=== PATIENT | male | born 1965 | race Caucasian/White ===

== ENCOUNTER 2016-05-11 11:09 | Inpatient (IN) | payer OTHER ==
[2016-05-11] VITALS (12 sets, daily range): BP systolic 110–148; BP diastolic 66–93; PULSE 76–91; RESP 10–18; O2SAT 94–100
[~2016-05-11] VITALS: Ht 193 cm; Wt 90.7 kg
[2016-05-11] MEDS: Lactated Ringer's 1,000 ML IV SCH ×3 (05:00→13:28)
[~2016-05-11 11:09] MED LIST: Bupivacaine Liposome 1.3% 20 mL Inj INFILTRATE ONE; CeFAZolin 2 Gm/50 mL D5W IV Premix IV ONE; DICL100G26 TOPICAL; LISI30TA5 PO; OMEP40CA36 PO; ROPI1TAB3 PO; quinine
[2016-05-11] MEDS ORDERED: CeFAZolin 2 Gm/50 mL D5W Duplex Bag IV ONE (11:51)
[2016-05-11] MEDS ORDERED: Phenylephrine 10,000 mCg/mL Inj IVPUSH PRN (12:40)
[2016-05-11] MEDS ORDERED: Lactated Ringer's 500 ML IV PRN (12:40)
[2016-05-11] MEDS ORDERED: Labetalol 5 mg/mL 4 mL Inj IV PRN (12:40)
[2016-05-11] MEDS ORDERED: EPHEDrine Sulfate 50 mg/mL Inj IVPUSH PRN (12:40)
[2016-05-11] MEDS ORDERED: Lactated Ringer's 1,000 ML IV SCH ×2 (12:40→19:45)
[2016-05-11] MEDS ORDERED: Ondansetron 2 mg/mL 2 mL Inj IVPUSH PRN (12:40)
[2016-05-11] MEDS ORDERED: Dexamethasone 4 mg/mL Inj IVPUSH PRN (12:40)
--- NOTE | 2016-05-11 12:59 | PCM.HPANE ---
Patient Data Surgeon Admitting Provider: Attending Provider:Tr Canales MD Primary Care Physician:Octavia Valle MD Other Provider:[facility] Reason for Visit Status Post Knee, Heterotopic Lesion Ht/WT & BMI Height (Feet): 6 Height (Inches): 4 Weight (Kilograms): 90.7 Body Mass Index 24.00 Allergies Coded Allergies: metoclopramide (Verified Allergy, Unknown, 05/03/15) Past Anesthesia History Anesthesia History: Denies:: Anesthesia Reactions Diabetes History Hx Diabetes?: No MRSA MRSA: No Medications Hypertension Medication: No Home Meds Incl Beta Desmond: No Reported Medications Ropinirole 1 Mg Tablet1 Mg PO TID PRN For Spasm Ref 0 05/08/16 [quinine] No Conflict CheckUnknown Dose BID 05/08/16 Omeprazole 40 Mg Capsule.dr40 Mg PO DAILY Ref 0 05/08/16 Lisinopril 30 Mg Soggkt16 Mg PO DAILY 30 Days Ref 0 05/08/16 Diclofenac Gel 100 Gm Tube1 Applic TOPICAL QID PRN For Pain #1 TUBE 05/08/16 Discontinued Reported Medications Omeprazole (Prilosec)40 Mg Capsule.dr40 Mg PO BID 30 Days Ref 0 05/03/15 Lisinopril 10 Mg Ptpkcu57 Mg PO DAILY 30 Days Ref 0 04/29/15 History History of ENT Problems?: Yes HEENT History: Positive for:: Sinus Problem (sinus surgery) Denies:: Cataracts Dysphagia Glaucoma Hearing Problem Denture Type: Full- Upper Full- Lower Other HEENT Pertinent History: 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 Hx of IgG tx once monthly- last infusion 05/02/16 Hx of Respiratory Problem?: No Respiratory History: Denies:: Asthma COPD Emphysema Oxygen Administration Pneumonia Tuberculosis Use of C-PAP Machine Hx Neurologic Problems?: No Neurological History: Denies:: CVA Dementia Dizziness Headaches Multiple Sclerosis Parkinson's Disease Seizures Hx of GI Problems?: Yes Gastrointestinal History: Positive for:: Hepatitis Denies:: Diverticulitis Gall Bladder Disease Gastrointestinal Bleeding Heartburn Hiatal Hernia Rectal Bleeding Hx of Problems?: No Genitourinary History: Denies:: Kidney Stones Urinary Tract Infection Male Hx: Denies:: Prostate Problems Skin History: Denies:: History Skin Disorders? Pressure Ulcers Hx Musculoskeletal Problems?: Yes Musculoskeletal History: Positive for:: Joint Replacement (left TKA) Musculoskeletal Trauma (heterotopic ossification left knee current admission problem) Hx of Psycho/Social Problems?: No Hx Surgeries?: Yes (right eye surgery due to corneal ulceration, sinus surgery, left tka, umb he) Hx Any Other Health Problems?: Yes Other History: Positive for:: Hospitalization Denies:: Cancer (aplastic anemia) Thyroid Disease History Blood Transfusions: Positive for:: Accept Blood Products? Blood Transfusions Hx Diabetes: No Hx Alcohol Use: Yes (occassional use)Hx Substance Use: No Smoking Status: Unknown if Ever Smoker Have You Smoked inLast 12 mo: No Stop/Bang Treated for Sleep Apnea?: No Do You Have a CPAP Machine?: No S-Snoring: Do You Snore Loudly: No T-Tired: feel tired, fatigued: No O-Obsered: Observed not breath: No P-Blood Pressure: treated: Yes B- Body Mass Index > 35 kg/m2: No A- Age over 50: Yes N- Neck Large Circumference: No G- Gender Male: Yes PALLAVI Total Score: 3 PALLAVI Risk Assessment: Low Risk, <3 Yes Risk Assessment Category Category 1A: Patient has history of documented sleep apnea, and HAS NOT received any narcotic, sedative or anesthesia administration during this stay. Category 1B: Patient has history of documented sleep apnea, and HAS received any narcotic , sedative or anesthesia administration during this stay Category 2: Patient has SUSPECTED Obstructive Sleep Apnea, and HAS received any narcotic , sedative or anesthesia administration during this stay. Category 3: Patient has SUSPECTED Obstructive Sleep Apnea and HAS NOT received narcotic, sedative or anesthesia administration during this stay. Category 4: Outpatient in Procedural Areas with known sleep apnea or who screen positive for High Risk via the STOP/BANG questionnaire. Exam Exam Vital Signs Vital Signs Date Time Temp Pulse Resp B/P Pulse Ox O2 Delivery O2 Flow Rate FiO2 05/11/16 11:24 36.7 79 16 142/87 97 Room Air General Appearance: Oriented X3 HEENT/AIRWAY: MP 2 Lungs: Normal Air Movement Heart: Regular Rate/Rhythm Meds/Labs/Diagnostics Admission Meds Current Medications Vancomycin HCl 1500 mg/Dextrose/ Water 500 ml @ 333.333 mls/hr PREOP ONCE IV Last administered on 05/11/16at 12:15; Start 05/11/16 at 06:00; Stop 05/11/16 at 07:29; Status DC Lactated Ringer's (Lr) 1,000 ml @ 120 mls/hr Q8H20M IV Last administered on at 11:23; Start 05/11/16 at 05:00; Stop 05/11/16 at 13:19 Plan Impression Patient chart reviewed, patient interviewed and anesthestic plan with risks, benefits, and alternatives discussed, and informed consent obtained. NPO Status: 05/10 ASA Physical Status: ASA2 Mod Systemic Disease Anesthetic Plan: GA, Regional Block Bene/Risks/Altern/Consents: Yes HP Complete Prior to Induction: Yes Raímrez Fonseca MD May 11, 2016 12:59
[2016-05-11] MEDS ORDERED: Gentamicin 40 mg/mL 2 mL Inj IRRIGATION ONE (13:57)
--- NOTE | 2016-05-11 15:55 | OP ---
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 PROCEDURE: 1. Revision of total knee polyethylene reducing 15 to 10 mm poly. 2. Synovectomy removing extensive synovial tissue proliferation. 3. Removal of heterotopic ossification. 4. Two plane C-arm visualization of the implant and heterotopic calcification removal of process. SURGEON: Tr Canales MD. DOOR TO DOOR SALESPERSON: Job Hwang PA-C. Production Support Developer required due to the major complexity of the operation. COMPLICATIONS: None. INDICATIONS: This man had a total knee replacement done in 2010, performed by Dr. Stone Cheng. He did well initially but has experienced progressive increasing pain and a substantial loss of range of motion, having a 20-degree flexion contracture preoperatively with 90 degrees of flexion creating an abnormal gait, pain and significant disability. He elects to proceed with this operation. He knows and understands the potential for risks and complications including return of arthrofibrosis and heterotopic ossification. He is being treated perioperatively with radiation management to reduce this incidence. DESCRIPTION OF PROCEDURE: The patient was prepped and draped in the usual sterile fashion. Preoperative measurements were made, and a 20-degree flexion contracture was encountered with approximately 95 degrees of flexion preoperatively. The previous open incision was opened. Longitudinally, dissection carried down. Deep fascia opened in line with previous incision removing the presence of thick permanent suture from the suture line. The knee was flexed up. A very small amount of effusion was encountered but it was sent for culture. The synovium was prolific with a calcified, frondular, prolific tissue through much of the knee. This was carefully excised, and a specimen was sent to Pathology for an analysis to see if this could help in reducing the potential recurrence of this problem. The polyethylene was removed which allowed exposure to the posterior aspect of the knee where further calcified, prolific synovium was encountered, as well as heterotopic ossification. Heterotopic ossification was removed from this area and the suprapatellar pouch. After extensive debridement of the knee, the poly was trialed with a 12.5 and a 10 mm poly. Full extension was achieved using a 10 mm poly. A 5-degree flexion contracture was noted with a 12.5 mm poly. There was mild mid flexion instability with the 10 mm poly but with aggressive manipulation the posterior stabilized knee could not be dislocated. So, due to the probability that his knee would develop some further fibrosis, a 10 mm poly was chosen. A C-arm was brought into the room and the knee was examined under C-arm control, documenting both full extension and the removal of the preoperative present heterotopic calcification. Wounds were irrigated thoroughly with sterile irrigant. They were also lavaged with a dilute Betadine solution. A deep Hemovac drain was left. The tourniquet was let down. Hemostasis was achieved. The knee was closed with #2 Quill deep, followed by 2-0 Vicryl, 3-0, and a 4-0 intracuticular stitch was utilized for the final closure. Postoperative physical therapy, emphasizing maintaining full extension as the primary emphasis.
--- NOTE | 2016-05-11 16:10 | PCM.ANEP1 ---
Post Anesthesia Phase 1 PACU Phase 1 Assessment Vital Signs Vital Signs Date Time Temp Pulse Resp B/P Pulse Ox O2 Delivery O2 Flow Rate FiO2 05/11/16 16:00 36.9 90 18 123/76 98 Room Air 05/11/16 15:50 91 13 135/85 98 Room Air 05/11/16 15:45 87 13 135/85 97 Room Air 05/11/16 15:40 84 11 110/93 100 Room Air 05/11/16 15:35 37.4 86 10 148/88 100 Simple Mask 8 05/11/16 11:24 36.7 79 16 142/87 97 Room Air Anesthetic Administered: GA Level of Alertness: Awake, talking Pain: No Nausea or Vomiting: No Oxygen Delivery: Room Air Lungs: Normal Air Movement Ramírez Fonseca MD May 11, 2016 16:10
--- NOTE | 2016-05-11 16:11 | PCM.ANEP2 ---
Post Anesthesia Evaluation ASA/CMS Post Anesthesia VS in Patient's Normal Range?: Yes Resp Stable; Airway Patent?: Yes CV Function & Hydration Stable: Yes Mental Status Recovered?: Yes Pain control Satisfactory?: Yes N/V Control Satisfactory?: Yes Ramírez Fonseca MD May 11, 2016 16:10
[2016-05-11] MEDS: HYDROmorphone 1 mg/mL Inj IVPUSH PRN ×2 (16:22→16:30)
[2016-05-11] MEDS ORDERED: Ketorolac 15 mg/mL Inj ONE (16:32)
--- NOTE | 2016-05-11 16:34 | DRSVH ---
PROCEDURE: X-RAY LEFT KNEE, ONE OR TWO VIEWS ([id number]) INDICATIONS: STATUS POST KNEE ARTHROSCOPY TECHNIQUE: 2 view(s) of the knee acquired. COMPARISON: [facility], , KNEE 1 OR 2VW (LT), 02/18/2007, 15:02. FINDINGS: Bones: Patient is status post knee joint arthroplasty. Hardware components are in expected position s. Visualized bony structures are intact. Soft tissues: Overlying postoperative changes are noted. IMPRESSION: Expected appearance status post left TKA. Dictated by: Shilo Walker [facility] Interpreted: Romi Arias MD on 05/11/2016 at 16:27 Transcribed by: MIYA on 05/11/2016 at 16:27 Approved by: Romi Arias MD, PhD on 05/11/2016 at 16:56
[2016-05-11] MEDS: fentaNYL-PF 50 mCg/mL 2 mL Inj IVPUSH PRN ×3 (16:40→17:25)
--- NOTE | 2016-05-11 18:15 | NUR ---
received to room 1025 from PACU alert, fairly comfortable, orthos signs OK, good appetite/eating general diet already, VSS
[2016-05-11] MEDS ORDERED: oxyCODONE-Acetamin 5-325 mg Tablet PO ONE (19:04)
[2016-05-11] MEDS: oxyCODONE-Acetamin 5-325 mg Tablet PO PRN (19:08)
[2016-05-11] MEDS ORDERED: LORazepam 0.5 mg Tablet PO PRN (19:45)
[2016-05-11] MEDS ORDERED: Vancomycin 1,000 mg/200 mL D5W IV ONE (19:45)
[2016-05-11] MEDS ORDERED: Ondansetron 2 mg/mL 2 mL Inj IV PRN (19:45)
[2016-05-11] MEDS ORDERED: Ondansetron 8 mg ODT Tablet PO PRN (19:45)
[2016-05-11] MEDS ORDERED: Alum-Mag Hydrox-Simeth 30 mL Suspension PO PRN (19:45)
[2016-05-11] MEDS ORDERED: HYDROcodone-APAP 5-325 mg Tablet PO PRN (19:45)
[2016-05-11] MEDS ORDERED: diphenhydrAMINE 25 mg Capsule PO PRN (19:45)
[2016-05-11] MEDS ORDERED: Magnesium Hydroxide 10 mL Oral Concentration PO PRN (19:55)
[2016-05-11] MEDS ORDERED: MetoCLOpramide 5 mg/mL 2 mL Inj IV PRN (20:15)
[2016-05-11] MEDS: Ketorolac 15 mg/mL Inj IV SCH (21:06)
[2016-05-11] MEDS ORDERED: INDOMETHACIN 75 MG PO SCH (21:30)
[2016-05-11] MEDS ORDERED: fentaNYL-PF 50 mCg/mL 2 mL Inj ONE (22:19)
[2016-05-11] MEDS: CeFAZolin 2 Gm/50 mL D5W Premix IV SCH (22:52)
[2016-05-11] MEDS ORDERED: 0.9% Sodium Chloride 250 ML ONE (22:55)
[2016-05-12] MEDS: oxyCODONE-Acetamin 5-325 mg Tablet PO PRN ×3 (00:08→08:36)
[2016-05-12] MEDS: hydrOXYzine Pamoate 25 mg Capsule PO PRN ×4 (00:08→16:30)
[2016-05-12] MEDS: Sodium Chloride LOK Flush 10 mL Syringe IV SCH ×4 (01:03→23:30)
[2016-05-12] MEDS ORDERED: VANCOMYCIN IV ONE (01:30)
[2016-05-12] MEDS: Ketorolac 15 mg/mL Inj IV SCH ×2 (03:46→08:33)
[2016-05-12 05:56] VITALS: BP 115/70; PULSE 70; RESP 16; O2SAT 97
--- NOTE | 2016-05-12 05:56 | NUR ---
Pain Patient reports pain 6/10 consistantly, despite interventions of PO percocet he specifically requests IV morphine. 200 ml sanguinous fluid out of hemovac. Patient running LR at 60 ml/hr, IV patent. Will continue to monitor
[2016-05-12] MEDS: CeFAZolin 2 Gm/50 mL D5W Premix IV SCH (06:42)
[2016-05-12 08:37] LABS: Mean Corpuscular Hemoglobin 30.4 pg (27.0-35.0); Mean Corpuscular Volume 91.1 fL (81-100); Platelet Count 199 bil/L (150-400)
[2016-05-12 08:38] LABS: BASOPHILS % (AUTO) 0.1 % (0-3); EOSINOPHILS % (AUTO) 0 % (0-5); MONOCYTES % (AUTO) 7.4 % (4-12); NEUTROPHILS % (AUTO) 83.1 % (40-74)
--- NOTE | 2016-05-12 08:43 | PCM.PNORTH ---
Subjective Date of Service: May 12, 2016 Visit Information: Reason for Visit Status Post Knee, Heterotopic Lesion Surgery/Surgery Date Post-Op Day # Date of Admission: May 11, 2016 at 18:41 Hospital Day # Subjective Found patient awake and alert and sitting up in bed and well positioned. No complaints of pain at this time. Discussed performance with physical therapy and its relationship to discharging to home as soon as possible. Encouraged patient to maintain full knee extension and work on this with therapy as well as when he is in bed. Discussed the fact that he did have full extension at the knee intraoperatively and that he should work hard to maintain this immediately postop. Postop General: No Complaints, No Shortness of Breath, No Chest Pain, Good Appetite Pain Management: PO, IV Push Objective Exam Objective Orientation: Alert and oriented 3 and pleasant. Dressing: Interoperative dressing is clean dry and intact Wound: Wound is not observed today Compartments: Calf and thigh are soft and nontender Mobility/sensation: Mobility and sensation are intact at the left lower extremity distally Galeano: Absent Drain: Hemovac drain is in place and working. Gait: No gait with physical therapy yet as of this time. Vital Signs and I/O Vital Sign - Last Date Time Temp Pulse Resp B/P Pulse Ox O2 Delivery O2 Flow Rate FiO2 05/12/16 05:56 36.6 70 16 115/70 97 Room Air 05/11/16 15:35 8 Intake and Output 05/11/16 05/11/16 05/12/16 Cumulative From/Thru 15:00 23:00 07:00 05/08/16 17:06 - 05/12/16 06:53 Intake Total 1060 ml 600 ml 800 ml 2460 ml Output Total 50 ml 1300 ml 1350 ml Balance 1060 ml 550 ml -500 ml 1110 ml Intake Oral 800 ml 800 ml IV Total 1060 ml 600 ml 1660 ml Output Urine Total 1100 ml 1100 ml Drainage Total 200 ml 200 ml Estimated Blood Loss 50 ml 50 ml Lab & Micro Results Laboratory Tests Test 05/12/16 07:29 Microbiology 05/11/16 Gram Stain - Final, Resulted 05/11/16 Culture & Sensitivity, Resulted Pending 05/11/16 Anaerobic Culture, Resulted Pending General Appearance: Alert, Oriented X3, Cooperative, No Acute Distress Extremities: No Compartment Syndrom Noted, Thigh & Calf Soft/Nontender Postop Sensory Motor: Distal Motor Intact, Movement in Toes, Distal Sensation Intact SURGICAL WOUND : Drain Location Body Site: Knee Wound Drainage Type: Hemovac Activity: Activity per PT, Ambulate with PT (therapy please encourage left knee full extension in bed and during gait.) Catheters: None Assessment & Plan Plan Postop day # 1 from left total knee arthroplasty revision with poly-exchange, synovectomy and excision of heterotopic ossifications performed on 05/11/[address] Tr Canales. Weight bearing status: Weightbearing as tolerated on the left lower extremity Mobility aid: Front-wheeled walker Immobilization: None Precautions: Maintain full knee extension when in bed and work on full knee extension during gait and when supine Physical therapy: Continue formal physical therapy for mobility, gait and safety. Please encourage patient to keep knee in full extension and work on this when he is in bed as well as during gait. Pain control: Continue by mouth pain medications as needed for pain control. Please discontinue IV pain medication as soon as possible. DVT prophylaxis: ASA 325 mg EC by mouth daily 6 weeks postop for DVT prophylaxis. Wound care: Keep wound clean and dry and covered until seen in office in 2 weeks Infectious DZ: None Galeano: Absent Dressing: Interoperative dressing is clean dry and intact and will be changed tomorrow on postop day #2 Drain: Hemovac drain is in an working and should be discontinued today on postop day #1 Nursing: Please work on discontinuing IV pain medication and moving patient to by mouth pain medication only 2-week follow-up: Follow-up in 2 weeks at [facility] orthopedic clinic one prearranged appointment with mid-level provider for wound check and suture removal 6-week follow-up: Follow-up in 6 weeks at [facility] orthopedic clinic on prearranged appointment with Dr. Tr Canales with left two-view knee x- rays on arrival. Discharge plan: Anticipate discharge to home with family has caregivers on postop day 2 or 3. VTE Prophylaxis: SCDs (SCD at right lower extremity), Other (ASA 325 EC by mouth daily 6 weeks postop for DVT prophylaxis.) Rajan Tan PA-C May 12, 2016 08:43
[2016-05-12] MEDS ORDERED: Lisinopril 40 Tablet PO SCH (08:57)
[2016-05-12 10:36] VITALS: BP 135/85; PULSE 83; RESP 18; O2SAT 100
[2016-05-12] MEDS: Pantoprazole 40 mg ER24 Tablet PO SCH (10:42)
[2016-05-12] MEDS ORDERED: Bupivacaine-MPF 0.25%/EPI 30 mL Inj ONE (11:31)
[2016-05-12] MEDS ORDERED: Propofol 10,000 mCg/mL 20 mL Inj ONE (11:31)
[2016-05-12] MEDS ORDERED: Dexamethasone 4 mg/mL Inj ONE (11:31)
[2016-05-12] MEDS ORDERED: Ondansetron 2 mg/mL 2 mL Inj ONE (11:31)
--- NOTE | 2016-05-12 12:19 | NUR ---
Pain Managed at -10/20 with 10 mg Percocet prn and 25mg Vistaril. Changed to plain oxycodone 10mg to avoid exceeding acetaminophen limit. Pt able to walk in halls with PT. Continue to monitor.
[2016-05-12 15:19] VITALS: BP 139/81; PULSE 88; RESP 20; O2SAT 97
[2016-05-12 21:13] VITALS: BP 134/85; PULSE 80; RESP 18; O2SAT 95
[2016-05-13] MEDS: hydrOXYzine Pamoate 25 mg Capsule PO PRN ×4 (01:11→14:31)
[2016-05-13 04:56] VITALS: BP 141/98; PULSE 87; RESP 18; O2SAT 100
--- NOTE | 2016-05-13 05:00 | NUR ---
Increased pain level tearful, rating knee pain a 10. IV MS 2mg given but ineffective. Repeated dose in 1hr without stated effect. Also received Visteril and Roxycodone. BLU Tan notified and to see patient on morning rounds.
[2016-05-13] MEDS: Pantoprazole 40 mg ER24 Tablet PO SCH (07:03)
[2016-05-13] MEDS: Sodium Chloride LOK Flush 10 mL Syringe IV SCH ×2 (07:21→16:30)
[2016-05-13] MEDS ORDERED: INDOMETHACIN 75 MG PO SCH (08:30)
--- NOTE | 2016-05-13 08:56 | PCM.PNORTH ---
Subjective Date of Service: May 13, 2016 Visit Information: Reason for Visit Status Post Knee, Heterotopic Lesion Surgery/Surgery Date Post-Op Day # Date of Admission: May 11, 2016 at 18:41 Hospital Day # Subjective Foundation awake and alert and sitting on the edge of bed. Complains of pain at this time beginning yesterday when his block wore intraoperative medications wore off. Patient indicates he is on chronic morphine use secondary to gammaglobulin infusions secondary to a bone marrow transplant for aplastic anemia. He did well with formal physical therapy yesterday but feels he could not go home today secondary to pain issues. I have discussed with him at some length today A change in his medication regime and we will implement that today an effort to get him ready for discharge either this afternoon or tomorrow. Postop General: No Shortness of Breath, No Chest Pain, Good Appetite Pain Management: PO, IV Push Objective Exam Objective Orientation: Alert and oriented 3 and pleasant. Dressing: Interoperative dressing is clean dry and intact. Interoperative dressing is changed to ABD and fishnet dressing this morning. Wound: Wound is observed this morning and is clean, dry and intact with no focal swelling and no erythema. Compartments: Calf and thigh are soft and nontender. Mobility/sensation: Toe wiggle and sensation are intact that left lower extremity. Galeano: Absent Drain: Absent Gait: Gait 175 feet with physical therapy on 05/12/2016. Physical therapy recommendation is for discharge to home with outpatient physical therapy using bilateral axillary crutches at this time. Vital Signs and I/O Vital Sign - Last Date Time Temp Pulse Resp B/P Pulse Ox O2 Delivery O2 Flow Rate FiO2 05/13/16 04:56 37.1 87 18 141/98 100 Room Air 05/11/16 15:35 8 Intake and Output 05/12/16 05/12/16 05/13/16 Cumulative From/Thru 15:00 23:00 07:00 05/08/16 17:06 - 05/13/16 06:14 Intake Total 800 ml 1600 ml 1200 ml 6060 ml Output Total 350 ml 1700 ml Balance 800 ml 1250 ml 1200 ml 4360 ml Intake Oral 1600 ml 1200 ml 3600 ml IV Total 800 ml 2460 ml Output Urine Total 300 ml 1400 ml Drainage Total 50 ml 250 ml Estimated Blood Loss 50 ml # Voids 3 4 7 Lab & Micro Results Microbiology 05/11/16 Gram Stain - Final, Resulted 05/11/16 Culture & Sensitivity - Preliminary, Resulted No growth to date 05/11/16 Anaerobic Culture, Resulted Pending Result Diagram: 05/12/16 0729 General Appearance: Alert, Oriented X3, Cooperative, No Acute Distress Extremities: No Compartment Syndrom Noted, Thigh & Calf Soft/Nontender Postop Sensory Motor: Distal Motor Intact, Movement in Toes, Distal Sensation Intact SURGICAL WOUND : Drain Location Body Site: Knee Wound Drainage Type: Hemovac Activity: Activity per PT, Ambulate with PT (therapy please encourage left knee full extension in bed and during gait.) Catheters: None Assessment & Plan Impression Patient has performed well with formal physical therapy on postop day #1 but has had a medication change which I believe has increased his pain level as well as expected postoperative pain increased after interoperative medications have worn off. Patient is otherwise doing well and will likely discharged today or tomorrow on postop day 3. Problems: Plan Postop day # 2 from left total knee arthroplasty revision with poly-exchange, synovectomy and excision of heterotopic ossifications performed on 05/11/[address] Tr Canales. Weight bearing status: Weightbearing as tolerated on the left lower extremity Mobility aid: Front-wheeled walker Immobilization: None Precautions: Maintain full knee extension when in bed and work on full knee extension during gait and when supine Physical therapy: Continue formal physical therapy for mobility, gait and safety. Please encourage patient to keep knee in full extension and work on this when he is in bed as well as during gait. Pain control: Continue by mouth pain medications as needed for pain control. Discontinue IV pain medications and do not restart these unless he check with orthopedics first. DVT prophylaxis: ASA 325 mg EC by mouth daily 6 weeks postop for DVT prophylaxis. Wound care: Keep wound clean and dry and covered until seen in office in 2 weeks Infectious DZ: None Galeano: Absent Dressing: Interoperative dressing is clean dry and intact. Interoperative dressing is changed to Picco type dressing this morning with a median fishnet. Drain: Absent Nursing: Please do not use IV pain medication. Please use Percocet 02/12/2025 by mouth every 4H, Roxicodone 5 mg 1-2 tabs by mouth when necessary, Vistaril 50 mg by mouth every 4H and indomethacin 75 mg by mouth twice a day. 2-week follow-up: Follow-up in 2 weeks at [facility] orthopedic clinic one prearranged appointment with mid-level provider for wound check and suture removal 6-week follow-up: Follow-up in 6 weeks at [facility] orthopedic clinic on prearranged appointment with Dr. Tr Canales with left two-view knee x- rays on arrival. Discharge plan: Anticipate discharge to home with family has caregivers on postop day 2 or 3 when pain is controlled. VTE Prophylaxis: SCDs (SCD at right lower extremity), Other (ASA 325 EC by mouth daily 6 weeks postop for DVT prophylaxis.) Rajan Tan PA-C May 13, 2016 08:56
[2016-05-13] MEDS: oxyCODONE-Acetamin 10-325 mg Tablet PO PRN ×3 (08:58→17:01)
[2016-05-13] MEDS: Indomethacin 25 mg Capsule PO SCH ×2 (10:10→14:31)
[2016-05-13 10:12] VITALS: BP 157/81; PULSE 101; RESP 19; O2SAT 96
--- NOTE | 2016-05-13 14:31 | PCM.DIORTH ---
Ortho Discharge Instruction Date of Service: May 13, 2016 Dates of Hospitalization Date of Hospital Admission May 11, 2016 at 18:41 Providers Admitting Physician: Tr Canales MD Primary Care Physician: Octavia Valle MD Attending Physician: Tr Canales MD Diet Discharge Diet: No restrictions Activity Discharge Activity-General: Try not to overdue, Be up and about, Balance rest and activity, Elevate extremity, Ice incision 3-5 time/day for 20min, Activity as pain allows, Activity as energy allows, No driving while taking narcotic Left Lower Extremity: Weight Bearing as tolerated Discharge Assist Device: Front Wheeled Walker Dressing and Incisional Care Discharge Dressing Care: Keep dressing clean, dry & intact, Change soiled dressing Discharge Hygiene: May shower (patient may shower but dressing and wound should be kept clean and dry until seen in office in 2 weeks.), DO NOT soak incision under water, NO bathtub, hot tub or whirlpool Additional Instructions Discharge Instructions Plan Postop day # 2 from left total knee arthroplasty revision with poly-exchange, synovectomy and excision of heterotopic ossifications performed on 05/11/[address] Tr Canales. Weight bearing status: Weightbearing as tolerated on the left lower extremity Mobility aid: Front-wheeled walker Immobilization: None Precautions: Maintain full knee extension when in bed and work on full knee extension during gait and when supine Physical therapy: Continue formal physical therapy for mobility, gait and safety. Please encourage patient to keep knee in full extension and work on this when he is in bed as well as during gait. Pain control: Continue by mouth pain medications as needed for pain control. Discontinue IV pain medications and do not restart these unless he check with orthopedics first. Patient should begin weaning down from home medications as prescribed today by the end of the first week. DVT prophylaxis: ASA 325 mg EC by mouth daily 6 weeks postop for DVT prophylaxis. Wound care: Keep wound clean and dry and covered until seen in office in 2 weeks Infectious DZ: None [place]ale[place]: Absent Dressing: Interoperative dressing is clean dry and intact. Interoperative dressing is changed to Picco type dressing this morning with a median fishnet. Drain: Absent Nursing: Please do not use IV pain medication. Please use Percocet 02/12/2025 by mouth every 4H, Roxicodone 5 mg 1-2 tabs by mouth when necessary, Vistaril 50 mg by mouth every 4H and indomethacin 75 mg by mouth twice a day. 2-week follow-up: Follow-up in 2 weeks at [facility] one prearranged appointment with mid-level provider for wound check and suture removal 6-week follow-up: Follow-up in 6 weeks at [facility] on prearranged appointment with Dr. Tr Canales with left two-view knee x- rays on arrival. Discharge plan: Anticipate discharge to home with family has caregivers on postop day 2 or 3 when pain is controlled. Follow Up Plan Follow Up Plan Patient will be seen at 2 weeks, 6 weeks and 12 weeks postoperatively. Patient will be seen when necessary in the interim. Follow-up Provider (F9): Tr Canales MD Mid-level Provider (F9): Rajan Tan PA-C Follow-up appointment: Weeks (follow-up in 2 weeks at [facility] on prearranged appointment for wound check and suture removal with mid- level provider.) Call your provider for: Fever, Chills, Shortness of breath, Vomitting, Drainage at incision Rajan Tan PA-C May 13, 2016 14:31
[2016-05-13] MEDS ORDERED: HYDR-3797 PO (14:39)
[2016-05-13] MEDS ORDERED: INDO25CA PO (14:39)
[2016-05-13] MEDS ORDERED: DOCU-41 PO (14:39)
[2016-05-13] MEDS ORDERED: OXYC5TAB72 PO (14:39)
[2016-05-13] MEDS ORDERED: Aspirin-Expunged Drug, Do Not Renew! PO (14:39)
[2016-05-13] MEDS ORDERED: OXYC-466 PO (14:39)
--- NOTE | 2016-05-13 14:43 | PCM.DC.ORT ---
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 Procedures Performed: Left total knee arthroplasty revision with poly-exchange, synovectomy and her topic ossification excision. Hospital Course: Patient was admitted to the preoperative clinic on 05/11/2016 and upon process and was taken to the operating room where his procedure was performed without incident. Upon awakening patient was taken to the recovery area and upon recovery from anesthesia was transferred in the orthopedic care unit where he participated well with formal physical therapy and received a clearance for discharge to home with outpatient therapy on postop day #2. Problems: (1) Prosthetic wear following total knee arthroplasty Status: Acute ICD Code: T84.069A Disposition: Discharged to home with family has caregivers Orthopedic Follow up Plan: In Two Weeks in my clinic (follow-up in 2 weeks at [facility] orthopedic clinic with mid-level provider for wound check and suture removal.) Discharge Instructions: Plan Postop day # 2 from left total knee arthroplasty revision with poly-exchange, synovectomy and excision of heterotopic ossifications performed on 05/11/[address] Tr Canales. Weight bearing status: Weightbearing as tolerated on the left lower extremity Mobility aid: Front-wheeled walker Immobilization: None Precautions: Maintain full knee extension when in bed and work on full knee extension during gait and when supine Physical therapy: Continue formal physical therapy for mobility, gait and safety. Please encourage patient to keep knee in full extension and work on this when he is in bed as well as during gait. Pain control: Continue by mouth pain medications as needed for pain control. Discontinue IV pain medications and do not restart these unless he check with orthopedics first. DVT prophylaxis: ASA 325 mg EC by mouth daily 6 weeks postop for DVT prophylaxis. Wound care: Keep wound clean and dry and covered until seen in office in 2 weeks Infectious DZ: None [place]: Absent Dressing: Interoperative dressing is clean dry and intact. Interoperative dressing is changed to Picco type dressing this morning with a median fishnet. Drain: Absent Nursing: Please do not use IV pain medication. Please use Percocet 02/12/2025 by mouth every 4H, Roxicodone 5 mg 1-2 tabs by mouth when necessary, Vistaril 50 mg by mouth every 4H and indomethacin 75 mg by mouth twice a day. 2-week follow-up: Follow-up in 2 weeks at [facility] orthopedic clinic one prearranged appointment with mid-level provider for wound check and suture removal 6-week follow-up: Follow-up in 6 weeks at [facility] orthopedic clinic on prearranged appointment with Dr. Tr Canales with left two-view knee x- rays on arrival. Discharge plan: Anticipate discharge to home with family has caregivers on postop day 2 or 3 when pain is controlled. Management Plan: Patient will be seen at 2 weeks, 6 weeks and 12 weeks postoperatively. Patient will be seen when necessary in the interim. ([quinine]) Unknown Dose BID ([Aspirin-Expunged Drug, Do Not Renew!]) 325 MG TABLET 325 MG PO BID Diclofenac Gel (Diclofenac Gel) 100 Gm Tube 1 APPLIC TOPICAL QID PRN PRN For Pain Docusate Sodium (Colace) 100 Mg Capsule 100 MG PO BID Hydroxyzine Pamoate (HydrOXYzine Pamoate) 25 Mg Capsule 25-50 MG PO Q4H PRN PRN For Restlessness Indomethacin (Indomethacin) 25 Mg Capsule 25 MG PO TID Lisinopril (Lisinopril) 30 Mg Tablet 30 MG PO DAILY Omeprazole (Omeprazole) 40 Mg Capsule.dr 40 MG PO DAILY Ropinirole (Ropinirole) 1 Mg Tablet 1 MG PO TID PRN PRN For Spasm oxyCODONE (oxyCODONE) 5 Mg Tablet 5-10 MG PO Q4H PRN PRN For Severe Pain Oxycodone should be taken in between doses of Percocet 10. oxyCODONE-Acetaminophen 10-325 mg (oxyCODONE-Acetaminophen 10-325 mg) 1 Each Tablet 1 TAB PO Q4H PRN PRN For Pain Rajan Tan PA-C May 13, 2016 14:43
--- NOTE | 2016-05-13 15:33 | NUR ---
Social Work Note: Screen Note/Discharge Data& Assessment: EMR reviewed. Per pt is medically ready for discharge via POV. SW met with pt at bedside to confirm discharge plan and assess for any unmet needs. Tr Bone is a 51 year old male admitted on 05/11/2016 for heteroptic lesion and status post knee. Pt has [employer] out of state insurance coverage and sees Octavia Valle MD for primary care. Pt lives in [place] with his spouse and is independent at baseline. PT is recommending outpt PT with crutches. Pt has his private crutches already owned. Pt to transport pt home. Pt denies any other needs. No other discharge needs identified. Plan: Per pt is medically ready to discharge home via POV with outpt PT. Pt to transport pt home. Pt denies any other needs. No other discharge needs identified. TANNER Hall
--- NOTE | 2016-05-13 18:15 | NUR ---
Discharge To home via POV with at 18:00. Steady transfer to wheelchair. IV discontinued intact. Pt expressed understanding of all discharge instructions, including care notes, followup and medications. Rx given and filled it. All belongings sent with pt.
--- NOTE | 2016-05-15 14:34 | PATH ---
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 UNUSUAL SYNOVIAL TISSUE FROM LEFT KNEE FINAL DIAGNOSIS: 1.SYNOVIUM, LEFT KNEE: TOPHACEOUS GOUT. NO EVIDENCE OF MALIGNANCY. ICD10 CODE M10.9 GROSS DESCRIPTION: Received in formalin labeled "unusual synovial tissue from left knee". The specimen consists of a membranous loza pearly rubbery tissue fragment measuring 4.0 x 3.5 x 0.7 cm in thickness. One surface is smooth and glistening, the other surface has multiple white chalky material consistent with possible gout. Verification Manager sections are submitted in two cassettes, 1A-1B. ([id number]) MICRO DESCRIPTION: See diagnosis. ICD-9 CODES: CPT CODES: 1: 94511 Electronically Signed Out Fabio Bonilla MD [facility] [address], [place] [address] Technical component performed at [facility], [address], [place], [address]
== END 2016-05-13 18:04 | disposition home or self-care (01) | DRG 909 ==
LOC: SAS 11:09 → OSC 18:41
PROVIDERS: ADMIT Orthopaedic Surgery; ATTEND Orthopaedic Surgery
PROC: 0SRD0JZ Replacement of Left Knee Joint with Synthetic Substitute, Open Approach (ICD-10-PCS; 2016-05-11)
PROC: 0MCP0ZZ Extirpation of Matter from Left Knee Bursa and Ligament, Open Approach (ICD-10-PCS; 2016-05-11)
PROC: 0SND0ZZ Release Left Knee Joint, Open Approach (ICD-10-PCS; 2016-05-11)
PROC: 0SBD0ZX Excision of Left Knee Joint, Open Approach, Diagnostic (ICD-10-PCS; 2016-05-11)
PROC: BQ1 Imaging, Non-Axial Lower Bones, Fluoroscopy (ICD-10-PCS; 2016-05-11)
PROC: 0SPD0JZ Removal of Synthetic Substitute from Left Knee Joint, Open Approach (ICD-10-PCS; principal; 2016-05-11 12:30)
DX: T85.618A Breakdown (mechanical) of other specified internal prosthetic devices, implants and grafts, initial encounter (principal); M61.562 Other ossification of muscle, left lower leg; M24.662 Ankylosis, left knee; M61.49 Other calcification of muscle, multiple sites; Z96.652 Presence of left artificial knee joint